=== PATIENT | male | born 1975 | race African-American/Black ===

== ENCOUNTER 2017-11-07 19:55 | Emergency (ER) | payer MEDICAID ==
[~2017-11-07] VITALS: Ht 182.9 cm; Wt 89.2 kg
[2017-11-07 19:59] VITALS: BP 142/98
[2017-11-07 20:44] LABS: BASOPHILS # (AUTO) 0.12 x10^3/uL (0-0.1); BASOPHILS % (AUTO) 2 % (0-1); EOSINOPHILS # (AUTO) 0.12 x10^3/uL (0-0.4); EOSINOPHILS % (AUTO) 2 % (1-7); LYMPHOCYTES % (AUTO) 34 % (22-44); MD NO; MEAN CORPUSCULAR HEMOGLOBIN 30.6 pg (27.5-34.5); MEAN CORPUSCULAR HGB CONC 33.8 g/dL (33.2-36.2); MEAN CORPUSCULAR VOLUME 90.5 fL (81-97); MEAN PLATELET VOLUME 8.5 fL (7.4-10.4); MONOCYTES # (AUTO) 0.76 x10^3/uL (0.2-0.8); MONOCYTES % (AUTO) 10 % (2-9); NEUTROPHILS # (AUTO) 3.85 x10^3/uL (1.8-6.8); NEUTROPHILS % (AUTO) 52 % (42-75); PLATELET COUNT 209 x10^3/uL (130-400); RED BLOOD COUNT 5.22 x10^6/uL (4.38-5.82); RED CELL DISTRIBUTION WIDTH 13.7 % (9.4-14.8)
[2017-11-07 20:47] LABS: ALBUMIN 3.9 g/dL (3.4-5.0); ANION GAP 6 mmol/L (5-15); CALCIUM 8.6 mg/dL (8.5-10.1); CHLORIDE 106 mmol/L (98-107); CREATININE 1.72 mg/dL (0.7-1.3)
== END 2017-11-07 21:33 | disposition home or self-care (01) ==
LOC: ED 21:00
DX: N28.9 Disorder of kidney and ureter, unspecified (principal)
CPT/HCPCS: 36415; 80048; 82040; 85025; 99284

== ENCOUNTER 2017-11-22 03:10 | Emergency (ER) | payer MEDICAID ==
[~2017-11-22] VITALS: Ht 185.4 cm; Wt 90.2 kg
[2017-11-22 03:12] VITALS: BP 143/92
[2017-11-22] MEDS ORDERED: PROPARACAINE OPHTH 0.5%, 15ML ONE (03:20)
== END 2017-11-22 03:53 | disposition home or self-care (01) ==
LOC: ED 03:47
DX: S05.02XA Injury of conjunctiva and corneal abrasion without foreign body, left eye, initial encounter (principal); X58.XXXA Exposure to other specified factors, initial encounter; Y93.89 Activity, other specified; Y99.8 Other external cause status; Y92.009 Unspecified place in unspecified non-institutional (private) residence as the place of occurrence of the external cause
CPT/HCPCS: 99283